=== PATIENT | female | born 1950 | race Caucasian/White ===

== ENCOUNTER 2017-01-17 19:35 | Observation (INO) | payer MEDICARE, OTHER ==
[2017-01-17] MEDS ORDERED: SODIUM CHLORIDE 0.9% 1,000 ML IV STA (20:45)
[2017-01-17] MEDS ORDERED: SODIUM CHLORIDE 0.9% 500 ML IV STA (20:45)
[2017-01-17] MEDS ORDERED: PANTOPRAZOLE 40 MG/10 ML VIAL IVP STA (20:45)
[2017-01-17] MEDS ORDERED: HYDROmorphone 1 MG/ML 1 ML SYRINGE IVP STA (20:45)
--- NOTE | 2017-01-17 20:50 | ED ---
General Adult HPI - General Chief complaint: Abdominal Pain Stated complaint: Abd Pain Time Seen by Provider: 01/17/17 20:34 Source: patient, family, RN notes reviewed Mode of arrival: ambulatory Limitations: no limitations - History of Present Illness Initial comments: Chief complaint history of present illness this is a 66-year-old female with complaint of epigastric pain. Does not radiate. sHe spent a for approximately 2 hours. She's vomited 3 or 4 times. Patient reports she had discomfort to her lower abdomen last week she took an antacid and it went away. She states took an antacid after having the pain in the epigastric region and did not go away. No other radiation. - Related Data Previous Rx's Medication Instructions Recorded Famotidine [Pepcid] 20 mg PO DAILY #30 tablet 01/17/17 Lisinopril [Prinivil] 5 mg PO DAILY #30 tablet 01/17/17 Ondansetron Odt [Zofran Odt] 4 mg PO Q8HR PRN #10 tab 01/17/17 Allergies Allergy/AdvReac Type Severity Reaction Status Date / Time azithromycin [From Zithromax] AdvReac Severe Nausea & Verified 01/17/17 20:35 Vomiting & Diarrhea Review of Systems ROS Statement: Those systems with pertinent positive or pertinent negative responses have been documented in the HPI. Review of systems patient denies any headache or visual acuity changes no chest pain or shortness of breath taking a deep breath causes discomfort to the epigastric region. Patient has discomfort to the epigastric region and somewhat the right upper quadrant. No back pain. Nausea vomiting 4 times. No diarrhea. No balance problems no deficits neurologically. All systems were reviewed. Past medical problems patient states she does not go to doctors very often but she denies any chronic medical problems. Surgeries none. Family history significant for mother had pancreatic cancer. Brother with esophageal cancer. Another brother with prostate cancer. Patient has ALLERGIES to ragweed. She does not smoke or use alcohol socially. ROS Other: All systems not noted in ROS Statement are negative. Past Medical History Past Medical History: No Reported History History of Any Multi-Drug Resistant Organisms: None Reported Past Surgical History: No Surgical Hx Reported Past Psychological History: No Psychological Hx Reported Smoking Status: Never smoker Past Alcohol Use History: None Reported Past Drug Use History: None Reported General Exam - General Exam Comments Initial Comments: General: The patient is awake and alert, moderate distress because of epigastric pain. The patient is hard of hearing. Vital signs temp 98.0 pulse 75 respiratory rate 18 pulse ox 96% room air blood pressure is elevated at 206/88. Patient states does not normally have high blood pressure. Eye: Pupils are equal, round and reactive to light, extra-ocular movements are intact ; there is normal conjunctiva bilaterally. No signs of icterus. Ears, nose, mouth and throat: There are moist mucous membranes and no oral lesions. Neck: The neck is supple, there is no tenderness, no JVD, thyroid not enlarged, no carotid bruit. No anterior cervical lymphadenopathy. Cardiovascular: There is a regular rate and rhythm. No murmur, rub or gallop is appreciated. Respiratory: Lungs are clear to auscultation, respirations are non-labored, breath sounds are equal. No wheezes, stridor, rales, or rhonchi. Gastrointestinal: Patient is tender with deep palpation to the right upper quadrant to the epigastric region. Mild voluntary guarding but no rebound or referred pain. Active bowel sounds. Back: No back pain. Musculoskeletal: Normal ROM, no tenderness, Neurological: No neuro deficits Skin: Patient denies any rashes. Limitations: no limitations Course Vital Signs 01/17/17 01/17/17 01/17/17 20:23 21:42 22:56 Temperature 98.0 F Pulse Rate 75 72 Respiratory 18 20 Rate Blood Pressure 206/88 181/81 209/79 O2 Sat by Pulse 96 98 Oximetry Medical Decision Making - Medical Decision Making medical decision-making the patient's white count 75.1 hemoglobin 14 hematocrit 43. Potassium is 4.7 with a BUN of 16 creatinine 0.9 the GFR greater than 60. Glucose 102. AST ALT elevated. Troponin less than 0.012. Amylase lipase normal. Plasma lactic acid normal. Total bilirubin normal at 0.6. The abdomen were done and reviewed by radiologist his findings are there is no pneumoperitoneum. No pneumatosis. There is no bowel obstruction. Visualized lung bases and pleural spaces are negative. Soft tissues are unremarkable. Impression; no acute process. As read by Dr. Master Valera after hydration and Protonix the patient reports she stomach feeling better. States that she felt this good at home she would not come in. Her blood pressure does remain high area this will be treated and the patient be given prescription for medications to take at home. She admits that she is noncompliant with following up with her doctor. Patient will receive 10 mg of hydralazine for elevated blood pressure 209/79. skin at 175/80. Patient is feeling better. She'll be driven home by a friend. Patient was strongly encouraged to follow-up with her doctor this week get her blood pressure checked daily. Take lisinopril 5 mg daily as well as her other medication. Dr. Villa - Lab Data Result diagrams: 01/17/17 21:05 01/17/17 21:05 Lab Results 01/17/17 01/17/17 01/17/17 Range/Units 21:05 21:05 21:05 WBC 5.1 (3.8-10.6) k/uL RBC 4.94 (3.80-5.40) m/uL Hgb 14.6 (11.4-16.0) gm/dL Hct 43.2 (34.0-46.0) % MCV 87.4 (80.0-100.0) fL MCH 29.6 (25.0-35.0) pg MCHC 33.8 (31.0-37.0) g/dL RDW 13.1 (11.5-15.5) % Plt Count 181 (150-450) k/uL Neutrophils % 71 % Lymphocytes % 17 % Monocytes % 8 % Eosinophils % 2 % Basophils % 1 % Neutrophils # 3.6 (1.3-7.7) k/uL Lymphocytes # 0.9 L (1.0-4.8) k/uL Monocytes # 0.4 (0-1.0) k/uL Eosinophils # 0.1 (0-0.7) k/uL Basophils # 0.0 (0-0.2) k/uL Sodium 141 (137-145) mmol/L Potassium 4.7 (3.5-5.1) mmol/L Chloride 106 (98-107) mmol/L Carbon Dioxide 24 (22-30) mmol/L Anion Gap 11 mmol/L BUN 16 (7-17) mg/dL Creatinine 0.90 (0.52-1.04) mg/dL Est GFR (MDRD) Af Amer >60 (>60 ml/min/1.73 sqM) Est GFR (MDRD) Non-Af >60 (>60 ml/min/1.73 sqM) Glucose 102 H (74-99) mg/dL Plasma Lactic Acid Bobby 1.2 (0.7-2.0) mmol/L Calcium 10.1 (8.4-10.2) mg/dL Total Bilirubin 0.6 (0.2-1.3) mg/dL AST 124 H (14-36) U/L ALT 86 H (9-52) U/L Alkaline Phosphatase 60 (38-126) U/L Troponin I (0.000-0.034) ng/mL Total Protein 7.4 (6.3-8.2) g/dL Albumin 4.4 (3.5-5.0) g/dL Amylase 46 (30-110) U/L Lipase 84 (23-300) U/L 01/17/17 Range/Units 21:05 WBC (3.8-10.6) k/uL RBC (3.80-5.40) m/uL Hgb (11.4-16.0) gm/dL Hct (34.0-46.0) % MCV (80.0-100.0) fL MCH (25.0-35.0) pg MCHC (31.0-37.0) g/dL RDW (11.5-15.5) % Plt Count (150-450) k/uL Neutrophils % % Lymphocytes % % Monocytes % % Eosinophils % % Basophils % % Neutrophils # (1.3-7.7) k/uL Lymphocytes # (1.0-4.8) k/uL Monocytes # (0-1.0) k/uL Eosinophils # (0-0.7) k/uL Basophils # (0-0.2) k/uL Sodium (137-145) mmol/L Potassium (3.5-5.1) mmol/L Chloride (98-107) mmol/L Carbon Dioxide (22-30) mmol/L Anion Gap mmol/L BUN (7-17) mg/dL Creatinine (0.52-1.04) mg/dL Est GFR (MDRD) Af Amer (>60 ml/min/1.73 sqM) Est GFR (MDRD) Non-Af (>60 ml/min/1.73 sqM) Glucose (74-99) mg/dL Plasma Lactic Acid Bobby (0.7-2.0) mmol/L Calcium (8.4-10.2) mg/dL Total Bilirubin (0.2-1.3) mg/dL AST (14-36) U/L ALT (9-52) U/L Alkaline Phosphatase (38-126) U/L Troponin I <0.012 (0.000-0.034) ng/mL Total Protein (6.3-8.2) g/dL Albumin (3.5-5.0) g/dL Amylase (30-110) U/L Lipase (23-300) U/L Disposition Clinical Impression: Acute gastritis, Hypertension Disposition: HOME SELF-CARE Condition: Fair Instructions: Gastritis (ED), Diet for Stomach Ulcers and Gastritis (ED), Duodenitis (ED) Additional Instructions: Try to eat frequent small meals. Use antacids as needed, one hour after meals and at bedtime. Take Pepcid daily. Follow-up family physician. He'll be suggested have endoscopy if no improvements noted in 4-6 weeks. Prescriptions: Famotidine [Pepcid] 20 mg PO DAILY #30 tablet Lisinopril [Prinivil] 5 mg PO DAILY #30 tablet Ondansetron Odt [Zofran Odt] 4 mg PO Q8HR PRN #10 tab PRN Reason: Nausea Referrals: Adama Greene DO [Primary Care Provider] - 1-2 days Time of Disposition: 23:32
[2017-01-17 21:21] LABS: Basophils % (A) 1 %; CH 29.7; CHCM 34.1; Eosinophils # (A) 0.1 k/uL (0-0.7); Eosinophils % (A) 2 %; HCT 43.2 % (34.0-46.0); HDW 2.56; HGB 14.6 gm/dL (11.4-16.0); Luc # (Auto) 0.08; Luc % (Auto) 2; Lymphocytes # (A) 0.9 k/uL (1.0-4.8); Lymphocytes % (A) 17 %; MCH 29.6 pg (25.0-35.0); MCHC 33.8 g/dL (31.0-37.0); MCV 87.4 fL (80.0-100.0); Mean Platelet Volume 7.8; Monocytes # (A) 0.4 k/uL (0-1.0); Monocytes % (A) 8 %; Neutrophils # (A) 3.6 k/uL (1.3-7.7); Neutrophils % (A) 71 %; RBC 4.94 m/uL (3.80-5.40); RDW 13.1 % (11.5-15.5); WBC 5.1 k/uL (3.8-10.6); WBC (Perox) 5.29
[2017-01-17 21:26] LABS: ALT 86 U/L (9-52); AST 124 U/L (14-36); Alkaline Phosphatase 60 U/L (38-126); Amylase 46 U/L (30-110); Anion Gap 11 mmol/L; Blood Urea Nitrogen 16 mg/dL (7-17); Calcium 10.1 mg/dL (8.4-10.2); Carbon Dioxide 24 mmol/L (22-30); Chloride 106 mmol/L (98-107); Glucose 102 mg/dL (74-99); Non-African American GFR(MDRD) >60 (>60 ml/min/1.73 sqM); Potassium 4.7 mmol/L (3.5-5.1); Sodium 141 mmol/L (137-145); Total Bilirubin 0.6 mg/dL (0.2-1.3); Total Protein 7.4 g/dL (6.3-8.2)
--- NOTE | 2017-01-17 22:21 | XR ---
EXAMINATION TYPE: XR abdomen 4V DATE OF EXAM: 01/17/2017 COMPARISON: NONE HISTORY: Pain with nausea and vomiting TECHNIQUE: 2 supine and 2 upright views FINDINGS: There is no pneumoperitoneum. No pneumatosis. There is no bowel obstruction. Visualized lung bases and pleural spaces are negative. Bones and soft tissues are unremarkable IMPRESSION: No acute process.
[2017-01-17] MEDS ORDERED: hydrALAZINE HCL 20 MG/ML 1 ML VIAL IVP STA (22:54)
[2017-01-18] MEDS ORDERED: METOCLOPRAMIDE 5 MG/ML 2 ML VIAL IVP STA (00:16)
[2017-01-18] MEDS ORDERED: HYDROmorphone 1 MG/ML 1 ML SYRINGE IV PRN (01:12)
[2017-01-18] MEDS ORDERED: NALOXONE 0.4 MG/ML 1 ML VIAL IV PRN (01:12)
[2017-01-18] MEDS ORDERED: ONDANSETRON 4 MG/2 ML VIAL IVP PRN (01:12)
[2017-01-18] MEDS ORDERED: SODIUM CHLORIDE 0.9% 1,000 ML IV SCH (01:30)
[2017-01-18 02:32] VITALS: BMI 33.6
[2017-01-18 08:14] VITALS: BP 129/61; PULSE 68; RESP 18; TEMP 99.1
[2017-01-18] MEDS ORDERED: PANTOPRAZOLE 40 MG/10 ML VIAL IV SCH (09:00)
--- NOTE | 2017-01-18 14:58 | P.HPIM ---
History of Present Illness H&P Date: 01/18/17 Chief Complaint: Epigastric pain HISTORY AND PHYSICAL AND DISCHARGE SUMMARY: This is a 66-year-old female patient of Dr. Greene with past medical history of gastroesophageal reflux disease, diverticulosis. She states that yesterday at 5:30 PM after she ate her supper of spaghetti, homemade sauce with hamburger she developed severe epigastric pain. This was nonradiating. She denies any pain in other quadrants, no shoulder pain, no chest pain. She does complain of nausea and vomiting but no diarrhea. She denies any fever but she states she felt warm. She states she took Tums and 7-Up and it didn't go away. She ended up calling her daughter and finally it did go away after she took another 7 up. She has a history of undergoing colonoscopy for which a polyp was removed completely years ago. However the pain came back and patient came into [facility] emergency center for evaluation. She was found to be quite hypertensive with initial blood pressure of 206/88. Patient denies any history of hypertension. She was given 1 dose of hydralazine with improvement of her blood pressure. Patient was placed on the observation unit and placed on IV fluids. In the emergency center, she was given Dilaudid, Reglan and Protonix. She states this resolved her pain and it did not return. Patient is anxious to be discharged home today. Discussed need for ultrasound of the gallbladder for which she will follow up with her primary care physician. Review of Systems All systems: negative Constitutional: Denies chills, Denies fatigue, Denies fever, Denies poor appetite Eyes: denies blurred vision, denies pain Ears, nose, mouth and throat: Denies dental pain, Denies dysphagia, Denies headache, Denies mouth pain, Denies sore throat Cardiovascular: Denies chest pain, Denies dyspnea on exertion, Denies leg edema , Denies lightheadedness, Denies shortness of breath, Denies syncope Respiratory: Denies cough, Denies cough with sputum, Denies dyspnea, Denies excessive sputum, Denies hemoptysis, Denies home oxygen Gastrointestinal: Reports abdominal pain, Reports heartburn, Reports nausea, Reports vomiting, Denies diarrhea Genitourinary: Denies dysuria, Denies hematuria Musculoskeletal: Denies myalgias Integumentary: Denies pruritus, Denies rash Neurological: Denies numbness, Denies weakness Psychiatric: Denies anxiety, Denies depression Endocrine: Denies fatigue, Denies weight change Past Medical History Past Medical History: GERD/Reflux Additional Past Medical History / Comment(s): Diverticulosis History of Any Multi-Drug Resistant Organisms: None Reported Past Surgical History: No Surgical Hx Reported Additional Past Surgical History / Comment(s): Colonoscopy Past Psychological History: No Psychological Hx Reported Smoking Status: Never smoker Past Alcohol Use History: None Reported Additional Past Alcohol Use History / Comment(s): Patient is a lifelong nonsmoker. She denies any medical marijuana, marijuana, street drug use. She drinks alcohol occasionally. She lives alone. Past Drug Use History: None Reported - Past Family History Father Additional Family Medical History / Comment(s): Father at age 59 due to prostate cancer. Mother Additional Family Medical History / Comment(s): Mother at age 77 with some type of cancer and patient does not remember type. Brother(s) Additional Family Medical History / Comment(s): Patient has 2 brothers and one currently is undergoing treatment for some type of cancer and patient does not know what this is. Patient has 1 brother that from esophageal cancer. Daughter(s) Additional Family Medical History / Comment(s): Patient has 2 daughters and one has problems with her thyroid and one with ALLERGIES. Patient has 1 son with no major medical problems. Patient does not have any sisters. Medications and Allergies Home Medications Medication Instructions Recorded Confirmed Type Lisinopril [Zestril] 5 mg PO DAILY #30 tab 01/18/17 Rx Pantoprazole [Protonix] 40 mg PO AC-BRKFST #30 tab 01/18/17 Rx Allergies Allergy/AdvReac Type Severity Reaction Status Date / Time azithromycin [From Zithromax] AdvReac Severe Nausea & Verified 01/17/17 20:35 Vomiting & Diarrhea Physical Exam Vitals: Vital Signs Temp Pulse Pulse Resp BP BP Pulse Ox 01/18/17 08:00 99.1 F 68 18 129/61 95 01/18/17 04:00 82 16 01/18/17 03:39 118/58 01/18/17 02:08 98.2 F 82 16 186/70 95 01/18/17 00:39 87 20 166/70 01/18/17 00:15 71 20 172/72 01/17/17 22:56 209/79 01/17/17 21:42 72 20 181/81 98 01/17/17 20:23 98.0 F 75 18 206/88 96 Intake and Output 01/17/17 01/18/17 01/18/17 22:59 06:59 14:59 Intake Total 240 Balance 240 Intake: Oral 240 Other: Voiding Method Toilet Weight 86.183 kg 86.183 kg Gen: This is a 66-year-old female. She is sitting up in bed and appears to be comfortable. No acute distress noted. HEENT: Head is atraumatic, normocephalic. Pupils equal, round. Sclerae is anicteric. NECK: Supple. No JVD. No lymphadenopathy. No thyromegaly. LUNGS: Clear to auscultation. No wheezes or rhonchi. No intercostal retractions. HEART: Regular rate and rhythm. No murmur. ABDOMEN: Soft. Bowel sounds are present. No masses. No tenderness. EXTREMITIES: No pedal edema. No calf tenderness. NEUROLOGICAL: Patient is awake, alert and oriented x3. Cranial nerves 2 through 12 are grossly intact. Results CBC & Chem 7: 01/17/17 21:05 01/17/17 21:05 Labs: Abnormal Lab Results - Last 24 Hours (Table) 01/17/17 01/17/17 Range/Units 21:05 21:05 Lymphocytes # 0.9 L (1.0-4.8) k/uL Glucose 102 H (74-99) mg/dL AST 124 H (14-36) U/L ALT 86 H (9-52) U/L Thrombosis Risk Factor Assmnt - DVT/VTE Prophylaxis DVT/VTE Prophylaxis: Pharmacologic Prophylaxis ordered - Choose All That Apply Each Risk Factor Represents 2 Points: Age 61-74 years Thrombosis Risk Factor Assessment Total Risk Factor Score: 2 Thrombosis Risk Factor Assessment Level: Low Risk Assessment and Plan Plan: 1. Epigastric pain possibly due to cholecystitis or gastritis. Patient started on Protonix. Recommend patient undergo outpatient ultrasound of the gallbladder. 2. Hypertension, urgent and new diagnosis. Patient started on lisinopril and provided with prescription. Patient placed in the observation unit. Discharge plan: Return home Impression and plan of care have been directed as dictated by the signing physician. Vanessa Lo nurse practitioner acting as scribe for signing physician. Cc: Dr. Adama Greene
[2017-01-19] MEDS ORDERED: PANTOPRAZOLE 40 MG TABLET PO SCH (07:30)
== END 2017-01-18 12:14 | disposition home or self-care (01) ==
LOC: EC 19:35 → 3OBS 01-18 01:12
PROVIDERS: ADMIT Internal Medicine; ATTEND Internal Medicine
DX: R10.13 Epigastric pain (principal); I16.0 Hypertensive urgency; I10 Essential (primary) hypertension; R11.2 Nausea with vomiting, unspecified; R74.0 Nonspecific elevation of levels of transaminase and lactic acid dehydrogenase [LDH]; K21.9 Gastro-esophageal reflux disease without esophagitis; K57.90 Diverticulosis of intestine, part unspecified, without perforation or abscess without bleeding; H91.90 Unspecified hearing loss, unspecified ear; Z88.1 Allergy status to other antibiotic agents; Z86.010 Personal history of colon polyps; Z80.0 Family history of malignant neoplasm of digestive organs
CPT/HCPCS: 36415; 74020; 80053; 82150; 83605; 83690; 84484; 85025; 96361; 96374; 96375; 96376; 99285

== ENCOUNTER → 2017-02-01 | Outpatient (CLI) | payer MEDICARE, OTHER ==
--- NOTE | 2017-02-01 15:06 | NM ---
EXAMINATION TYPE: NM hepatobiliary w EF DATE OF EXAM: 02/01/2017 COMPARISON: NONE HISTORY: Right upper quadrant pain TECHNIQUE: After the intravenous administration of 5.3 mCi Tc 99m Mebrofenin hepatobiliary scintigrap hy is performed. Immediate images post injection. FINDINGS: There is satisfactory initial accumulation of tracer by the liver. The gallbladder is visualized wit hin 18 minutes. The small bowel activity is noted within 10 minutes. At one hour 8 ounces of oral e nsure plus is given to mimic CCK and gallbladder ejection fraction is calculated at 64 %, in the norm al range. Therefore there is no scintigraphic evidence of cystic or common bile duct obstruction to suggest acute cholecystitis or gallbladder dyskinesia. IMPRESSION: Exam is within normal limits.
== END | disposition home or self-care (01) ==
LOC: RADNMMAIN 12:28
PROVIDERS: ATTEND Family Medicine
DX: R10.11 Right upper quadrant pain (principal)
CPT/HCPCS: 78226; A9537

== ENCOUNTER → 2017-06-29 | Outpatient (CLI) | payer MEDICARE, OTHER ==
--- NOTE | 2017-06-29 11:42 | US ---
EXAMINATION TYPE: US carotid duplex BILAT DATE OF EXAM: 06/29/2017 COMPARISON: 03/14/2016 CLINICAL HISTORY: I10 HTN. HTN, left facial numbness, no hx of TIA or stroke EXAM MEASUREMENTS: RIGHT: Peak Systolic Velocity (PSV) cm/sec ----- Right CCA: 54.6 ----- Right ICA: 93.0 ----- Right ECA: 78.2 ICA/CCA ratio: 1.7 RIGHT: End Diastole cm/sec ----- Right CCA: 16.2 ----- Right ICA: 29.2 ----- Right ECA: 11.0 LEFT: Peak Systolic Velocity (PSV) cm/sec ----- Left CCA: 65.9 ----- Left ICA: 72.1 ----- Left ECA: 82.0 ICA/CCA ratio: 1.1 LEFT: End Diastole cm/sec ----- Left CCA: 18.9 ----- Left ICA: 23.7 ----- Left ECA: 11.7 VERTEBRALS (direction of flow): Right Vertebral: Antegrade Left Vertebral: Antegrade Rhythm: Normal No plaque seen. Wall thickening seen bilaterally. No elevated velocities or significant stenosis see n. IMPRESSION: 1. Mild intimal thickening. No significant flow-limiting stenosis is present. Criteria for Assigning % of Stenosis / Diameter reduction (Estimation based on the indirect measurements of the internal carotid artery velocities (ICA PSV). 1. Normal (no stenosis)=ICA PSV < 125 cm/s: ratio < 2.0: ICA EDV<40 cm/s. 2. Less than 50% stenosis=ICA PSV < 125 cm/s: ratio < 2.0: ICA EDV<40 cm/s. 3. 50 to 69% stenosis=ICA PSV of 125 to 230 cm/s: ration 2.0 ? 4.0: ICA EDV 40-100 cm/s. 4. Greater than 70% stenosis to near occlusion= ICA PSV > 230 cm/s: ratio > 4.0: ICA EDV > 100 cm/s. 5. Near occlusion= ICA PSV velocities may be low or undetectable: variable ratio and ICA EDV. 6. Total occlusion=unable to detect flow.
== END | disposition home or self-care (01) ==
LOC: RADUSWWP 10:31
PROVIDERS: ATTEND Family Medicine
DX: I77.89 Other specified disorders of arteries and arterioles (principal); I10 Essential (primary) hypertension
CPT/HCPCS: 93880

== ENCOUNTER → 2017-07-10 | Outpatient (CLI) | payer MEDICARE, OTHER ==
--- NOTE | 2017-07-10 16:19 | CT ---
EXAMINATION TYPE: CT abdomen wo con DATE OF EXAM: 07/10/2017 COMPARISON: 05/14/2013 HISTORY: Left upper quadrant pain x [address] DLP: 598.7 mGycm Automated exposure control for dose reduction was used. TECHNIQUE: Helical acquisition of images was performed from the lung bases through the top of iliac crest to include entire abdomen. CONTRAST: Performed with Oral Contrast and without IV contrast. FINDINGS: LUNG BASES: No significant abnormality is appreciated. LIVER/GB: The gallbladder is contracted and contains high density material which may reflect sludge o r small stones. The liver is grossly unremarkable. PANCREAS: No significant abnormality is seen. SPLEEN: No significant abnormality is seen. The spleen is of normal size. ADRENALS: No significant abnormality is seen. KIDNEYS: No mass or hydronephrosis. No evidence for nephrolithiasis. BOWEL: There is pyloric wall thickening which may reflect spasm versus underlying inflammation. Visu alized small and large bowel are otherwise unremarkable. Appendix partially visualized. LYMPH NODES: No significant abnormality is appreciated. OSSEOUS STRUCTURES: No significant abnormality is seen. FREE AIR: No free air is visualized. OTHER: IMPRESSION: 1.There is pyloric wall thickening which may reflect spasm versus underlying inflammation. 2.The gallbladder is contracted and contains high density material which may reflect sludge or small stones.
== END | disposition home or self-care (01) ==
LOC: RADCTMAIN 14:55
PROVIDERS: ATTEND Family Medicine
DX: K82.0 Obstruction of gallbladder (principal); K31.89 Other diseases of stomach and duodenum
CPT/HCPCS: 74150

== ENCOUNTER 2017-10-26 06:22 | Day surgery (SDC) | payer MEDICARE, OTHER ==
[2017-10-22 15:04] VITALS: BMI 34.3
[~2017-10-26 06:22] MED LIST: DEXAMETHASONE SOD PHOSPHATE 10 MG/ML 1 ML VIAL IV ONE; HEPARIN SODIUM,PORCINE 5,000 UNIT/ML 1 ML VIAL SQ ONE; HYDROmorphone 0.5 MG/0.5 ML SYRINGE IVP PRN; LACTATED RINGERS 1,000 ML IV SCH; ONDANSETRON 4 MG/2 ML VIAL IVP ONE
[2017-10-26] MEDS ORDERED: LIDOCAINE 1% 20 ML VIAL (10MG/ML) FOR IV START INTRADERMA ONE (07:04)
[2017-10-26] MEDS: ceFAZolin IN SWFI 2 GM/20 ML SYRINGE IVP ONE ×2 (07:35→07:52)
[2017-10-26] MEDS ORDERED: BUPIVACAINE (PF) 0.5% 30 ML VIAL SQ ONE ×3 (07:36→08:12)
[2017-10-26] MEDS ORDERED: PROPOFOL 10 MG/ML 20 ML VIAL IV ONE (07:52)
[2017-10-26] MEDS ORDERED: GLYCOPYRROLATE 0.2 MG/ML 2 ML VIAL ONE (07:52)
[2017-10-26] MEDS ORDERED: HYDROmorphone (PF) 1 MG/ML ONE (07:52)
[2017-10-26] MEDS ORDERED: SUCCINYLCHOLINE CHLORIDE 100 MG/5 ML SYR IV ONE (07:52)
[2017-10-26] MEDS ORDERED: VECURONIUM 10 MG VIAL IV ONE (07:52)
[2017-10-26] MEDS ORDERED: NEOSTIGMINE 1 MG/ML 10 ML VIAL ONE (07:52)
[2017-10-26] MEDS ORDERED: fentaNYL (PF) 50 MCG/ML 2 ML AMP ONE (07:52)
[2017-10-26] MEDS ORDERED: MIDAZOLAM 2 MG/2 ML VIAL ONE (07:52)
[2017-10-26] MEDS ORDERED: LIDOCAINE 1% INJ 10MG/ML (20 ML MDV) ONE (07:52)
[2017-10-26] MEDS ORDERED: LACTATED RINGERS 1,000 ML IV ONE (08:47)
[2017-10-26 09:19] VITALS: TEMP 97.1
[2017-10-26] MEDS ORDERED: HYDROcodone/APAP 5-325MG 1 EACH TAB PO PRN (09:26)
[2017-10-26] MEDS ORDERED: NALOXONE 0.4 MG/ML 1 ML VIAL IV PRN (09:26)
--- NOTE | 2017-10-26 09:29 | P.OP ---
Date of Procedure: 10/26/17 Procedure(s) Performed: PREOPERATIVE DIAGNOSIS: Chronic cholecystitis POSTOPERATIVE DIAGNOSIS: Same PROCEDURE: Laparoscopic cholecystectomy SURGEON: John EBL: Minimal see anesthesia record ANESTHESIA: Gen. COMPLICATIONS: None OPERATIVE PROCEDURE: The patient was brought and placed on the operating room table in the supine position. The patient was placed under general anesthesia at that time. The abdomen was prepped and draped in the usual sterile fashion. A small vertical infraumbilical incision was made. The fascia was grasped with the Kris forceps. The fascia was retracted anteriorly. The Veress needle was advanced into the peritoneal cavity. The saline drop test was normal. Insufflation took place up to 15 mmHg. A 5 mm optical trocar was advanced and the peritoneal cavity. 2 additional 5 mm trochars were placed in the right upper quadrant under direct visualization. A 10 mm trocar was advanced into the epigastric incision site. The gallbladder was retracted superiorly and laterally. The peritoneum overlying the infundibulum was bluntly dissected. The patient's cystic duct was visualized. The junction between the cystic duct common and hepatic duct was identified. The cystic duct was then divided after placement of 3 10 mm clips on the patient's side and one on the specimen side. The cystic artery was identified and clipped as well. A small vessel was seen along the gallbladder fossa and clipped as well. The gallbladder was then removed from the liver bed using electrocautery. The gallbladder was then removed from the epigastric trocar site with an Endo Catch bag. The gallbladder fossa was irrigated with saline. There was no evidence of any bleeding or biliary drainage seen. The trochars were then removed. The fascia at the 10 millimeter site was closed using a Pranav- Dustin 0 Vicryl stitch. The skin at all 4 sites was closed using a 4-0 Monocryl stitch. At the end of this procedure the sponge and needle counts were correct. DISPOSITION: Stable to the recovery room
[2017-10-26] MEDS ORDERED: LABETALOL 5 MG/ML VIAL MDV IVP ONE (09:37)
[2017-10-26 11:14] VITALS: RESP 18
[2017-10-26] MEDS ORDERED: ONDANSETRON 4 MG/2 ML VIAL IVP ONE (11:20)
[2017-10-26 11:37] VITALS: BP 144/78; PULSE 70
== END 2017-10-26 12:08 | disposition home or self-care (01) ==
LOC: OR 06:22
PROVIDERS: ATTEND Surgery
DX: K80.10 Calculus of gallbladder with chronic cholecystitis without obstruction (principal); I10 Essential (primary) hypertension; K21.9 Gastro-esophageal reflux disease without esophagitis; H91.91 Unspecified hearing loss, right ear; Z88.1 Allergy status to other antibiotic agents; Z79.899 Other long term (current) drug therapy
CPT/HCPCS: 88304; 47562; J2250; J1644; J1100; J2710; J2405; J2001; J3010; J1170; J0330; J2704; J0690

== ENCOUNTER → 2019-06-27 | Outpatient (CLI) | payer MEDICARE, OTHER ==
--- NOTE | 2019-06-27 14:39 | CT ---
EXAMINATION TYPE: CT abdomen pelvis wo con DATE OF EXAM: 06/27/2019 COMPARISON: 07/10/2017 HISTORY: 68-year-old female Upper abdominal and RLQ pain CT DLP: 1101 mGycm. Automated exposure control for dose reduction was used. TECHNIQUE: Contiguous axial scanning of the abdomen and pelvis without IV contrast. Coronal and sagit caridad reconstructions performed. FINDINGS: LUNG BASES: No significant abnormality is appreciated. Small hiatal hernia. LIVER/GB: Liver enlarged measuring 18.8 cm with low attenuation compatible with fatty infiltration. C holecystectomy clips. PANCREAS: No significant abnormality is seen. SPLEEN: No significant abnormality is seen. ADRENALS: No significant abnormality is seen. KIDNEYS: No significant abnormality is seen. LYMPH NODES: Borderline enlarged left periaortic retroperitoneal lymph node measures 8 mm, axial imag e 69, unchanged from 2018 compatible with a benign etiology. Mild apical scarring calcifications infr arenal abdominal aorta without aneurysm. BOWEL: Normal appendix. No dilated small bowel, free fluid, or free air. There is scattered mild to moderate stool in left-sided colonic diverticulosis, greatest in the sigmoid colon. No pericolonic in flammatory change. PELVIS: Mild circumference of lateral wall thickening. Uterus anteverted. Neither ovary well seen. No abnormal fluid collection in the pelvis or pelvic lymphadenopathy. Tiny pelvic phleboliths on the ri ght. BONES: Facet arthropathy lower lumbar spine. Degenerative disc disease thoracolumbar junction. Grade 1 retrolisthesis L1-L2 and L2-L3. IMPRESSION: 1. Mild hepatomegaly (18.8 cm) with hepatic steatosis. 2. Left-sided colonic diverticulosis without evidence for acute diverticulitis. 3. Mild circumferential bladder wall thickening. Correlate to exclude cystitis. 4. Small hiatal hernia.
== END | disposition home or self-care (01) ==
LOC: RADCTMAIN 12:20
PROVIDERS: ATTEND Family Medicine
DX: K76.0 Fatty (change of) liver, not elsewhere classified (principal); K57.30 Diverticulosis of large intestine without perforation or abscess without bleeding; K44.9 Diaphragmatic hernia without obstruction or gangrene; R16.0 Hepatomegaly, not elsewhere classified; R93.41 Abnormal radiologic findings on diagnostic imaging of renal pelvis, ureter, or bladder
CPT/HCPCS: 74176

== ENCOUNTER → 2021-02-17 | Outpatient (CLI) | payer MEDICARE, OTHER ==
--- NOTE | 2021-02-17 16:38 | CT ---
EXAMINATION TYPE: CT brain wo/w con DATE OF EXAM: 02/17/2021 COMPARISON: 03/14/2016 HISTORY: TIA CT DLP: 2054mGycm CONTRAST: CT scan of the head is performed without and with IV Contrast, patient injected with 100 mL of Isovue 300. Unenhanced followed by contrast enhanced CT of the brain is submitted for evaluation. The ventricles are midline. There is no evidence for intracranial hemorrhage or extra-axial collection. No mass e ffects are identified. Visualized bony calvarium is intact. Contrast is administered and no enhanci ng lesions are detected. No pathologic enhancement is identified. If symptoms persist consider MRI. IMPRESSION: Normal CT brain.
== END | disposition home or self-care (01) ==
LOC: RADCTMAIN 15:09
PROVIDERS: ATTEND Family Medicine
DX: G45.9 Transient cerebral ischemic attack, unspecified (principal)
CPT/HCPCS: 82565; 84520; 70470; 36415; Q9967

== ENCOUNTER → 2022-01-04 | Outpatient (CLI) | payer MEDICARE ==
--- NOTE | 2022-01-04 16:13 | CT ---
EXAM: CT Abdomen and Pelvis With Intravenous Contrast CLINICAL HISTORY: ITS. REASON CT Reason: R10.31 right lower quadrant pain TECHNIQUE: Axial computed tomography images of the abdomen and pelvis with intravenous contrast. CTDI is 20.5 mGy and DLP is 1648.1 mGy-cm. This CT exam was performed using one or more of the following dose reduction techniques: automated exposure control, adjustment of the mA and/or kV according to patient size, and/or use of iterative reconstruction technique. COMPARISON: No relevant prior studies available. FINDINGS: The lung bases demonstrate no acute infiltrate. Marked hepatic steatosis. Hepatomegaly. Status post cholecystectomy. No biliary ductal dilation. The pancreas, spleen, and adrenal glands are within normal limits. Renal cortical atrophy. No hydronephrosis. Diverticulosis coli. Sigmoid colonic diverticulitis. No abscess or free air. No bowel obstruction. Unremarkable appendix. Aortoiliac atherosclerosis. No aneurysm. Lumbar spondylosis. Grade 1 T12, L1, L2, and L3 retrolisthesis. No acute fracture. IMPRESSION: Sigmoid colonic diverticulitis. No abscess or free air. Hepatomegaly with marked parenchymal steatosis. Cholecystectomy.
== END | disposition home or self-care (01) ==
LOC: RADCTMAIN 14:14
PROVIDERS: ATTEND Family Medicine
DX: K57.30 Diverticulosis of large intestine without perforation or abscess without bleeding (principal); K76.0 Fatty (change of) liver, not elsewhere classified; R16.0 Hepatomegaly, not elsewhere classified; R10.31 Right lower quadrant pain; Z90.49 Acquired absence of other specified parts of digestive tract
CPT/HCPCS: 82565; 84520; 74177; 36415; Q9967

== ENCOUNTER 2022-11-13 12:24 | Observation (INO) | payer MEDICARE ==
[2022-11-13] MEDS ORDERED: ASPIRIN 81 MG PO STA (12:56)
[2022-11-13 13:20] LABS: Basophils % (A) 0 %; Eosinophils # (A) 0.4 k/uL (0-0.7); Eosinophils % (A) 7 %; Lymphocytes # (A) 1.6 k/uL (1.0-4.8); Lymphocytes % (A) 29 %; MCH 30.1 pg (25.0-35.0); MCHC 32.6 g/dL (31.0-37.0); MCV 92.3 fL (80.0-100.0); Mean Platelet Volume 7.8; Monocytes # (A) 0.3 k/uL (0-1.0); Monocytes % (A) 6 %; Neutrophils % (A) 55 %; Platelet Count 210 k/uL (150-450); RBC 4.33 m/uL (3.80-5.40); WBC 5.3 k/uL (3.8-10.6)
[2022-11-13 13:29] LABS: Partial Thromboplastin Time 23.9 sec (22.0-30.0); Prothrombin Time 10.3 sec (9.0-12.0)
[2022-11-13 13:36] LABS: AST 29 U/L (14-36); African American GFR (CKD) 52 (>60 ml/min/1.73 sqM); Albumin 4.1 g/dL (3.5-5.0); Alkaline Phosphatase 49 U/L (38-126); Blood Urea Nitrogen 19 mg/dL (7-17); Calcium 9.7 mg/dL (8.4-10.2); Carbon Dioxide 25 mmol/L (22-30); Chloride 102 mmol/L (98-107); Glucose 132 mg/dL (74-99); Non-African American GFR(CKD) 45 (>60 ml/min/1.73 sqM); Total Bilirubin 0.4 mg/dL (0.2-1.3); Total Protein 7.1 g/dL (6.3-8.2)
[2022-11-13 13:37] LABS: ALT 31 U/L (4-34); Anion Gap 11 mmol/L; Sodium 138 mmol/L (137-145)
--- NOTE | 2022-11-13 13:47 | XR ---
EXAMINATION TYPE: XR chest 2V DATE OF EXAM: 11/13/2022 COMPARISON: 04/18/2016 HISTORY: Shortness of breath TECHNIQUE: Frontal and lateral views of the chest are obtained. FINDINGS: Scattered senescent parenchymal changes noted. Hyperinflation compatible with COPD. Interstitial prominence noted as well as increased density right infrahilar region which could reflec t developing pneumonia. Correlate clinically. Heart size is stable. Mediastinal structures are stable and grossly unremarkable. No evidence for hilar prominence. Degenerative changes dorsal spine. IMPRESSION: 1. Interstitial prominence noted as well as increased density right infrahilar region which could ref lect developing pneumonia. Correlate clinically.
[2022-11-13] MEDS ORDERED: ONDANSETRON 4 MG/2 ML VIAL IVP PRN (15:27)
[2022-11-13] MEDS ORDERED: NALOXONE 0.4 MG/ML 1 ML VIAL IV PRN (15:27)
--- NOTE | 2022-11-13 16:32 | ED ---
General Adult HPI - General Chief complaint: Chest Pain Stated complaint: chest pain Time Seen by Provider: 11/13/22 12:34 Source: patient, RN notes reviewed, old records reviewed Mode of arrival: ambulatory Limitations: no limitations - History of Present Illness Initial comments: Patient is a 72-year-old female with past medical history remarkable for hearing impairment, hypertension, asthma, acid reflux who presents emergency Department with atypical chest pain. States is somewhat center and right-sided. Currently does not have a period occurred twice in the last few days. Resolves with rest. Denies shortness of breath. Denies any nausea or vomiting. Denies any diarrhea or abdominal pain. His no other acute complaints at this time. No cardiac history. Presents for further evaluation at this time. - Related Data Home Medications Medication Instructions Recorded Confirmed Bacillus Coagulans [Digestive 1 tab PO DAILY 11/13/22 11/13/22 Advantage Probiotic Chew] Cider Vinegar [Apple Cider Vinegar] 300 mg PO DAILY 11/13/22 11/13/22 Fish Oil(Unknown Dose) 1 cap PO DAILY 11/13/22 11/13/22 Inulin/Chromium Picolinate [Fiber 1 tab PO DAILY 11/13/22 11/13/22 Gummies Chew] Losartan/Hydrochlorothiazide 1 tab PO DAILY 11/13/22 11/13/22 [Hyzaar 100-12.5 Tablet] Lutein 20 mg PO DAILY 11/13/22 11/13/22 Multivitamins, Thera [Multivitamin 1 tab PO DAILY 11/13/22 11/13/22 (formulary)] Omeprazole 20 mg PO DAILY 11/13/22 11/13/22 Vitamin D3(Unknown) 1 tab PO DAILY 11/13/22 11/13/22 Allergies Allergy/AdvReac Type Severity Reaction Status Date / Time mold Allergy Itching Verified 11/13/22 14:16 eyes azithromycin [From Zithromax] AdvReac Severe Nausea & Verified 11/13/22 14:16 Vomiting & Diarrhea DUST AND MOLD Allergy Itching Uncoded 11/13/22 14:16 eyes Review of Systems ROS Statement: Those systems with pertinent positive or pertinent negative responses have been documented in the HPI. Review of Systems: CONST: Denies fever EYES: Denies blurry vision ENT: Denies nasal congestion C/V: Denies Chest pain RESP: Denies shortness of breath GI: Denies abdominal pain : Denies dysuria SKIN: Denies rash. MSK: Denies joint pain. NEURO: Denies headache ROS Other: All systems not noted in ROS Statement are negative. Past Medical History Past Medical History: Asthma, GERD/Reflux, Hypertension Additional Past Medical History / Comment(s): Diverticulosis History of Any Multi-Drug Resistant Organisms: None Reported Past Surgical History: Cholecystectomy Additional Past Surgical History / Comment(s): Colonoscopy, EGD Past Anesthesia/Blood Transfusion Reactions: No Reported Reaction Past Psychological History: No Psychological Hx Reported Smoking Status: Never smoker Past Alcohol Use History: None Reported Past Drug Use History: None Reported - Past Family History Father Family Medical History: Cancer Additional Family Medical History / Comment(s): Father at age 59 due to prostate cancer. Mother Family Medical History: Cancer Additional Family Medical History / Comment(s): Mother at age 77 with some type of cancer and patient does not remember type. Brother(s) Family Medical History: Cancer Additional Family Medical History / Comment(s): Patient has 2 brothers and one currently is undergoing treatment for some type of cancer and patient does not know what this is. Patient has 1 brother that from esophageal cancer. Daughter(s) Family Medical History: Cancer Additional Family Medical History / Comment(s): Patient has 2 daughters and one has problems with her thyroid and one with ALLERGIES. Patient has 1 son with no major medical problems. Patient does not have any sisters. General Exam - General Exam Comments Initial Comments: General: Appears in no acute distress. HEAD: Normal with no signs of head trauma. EYES: PERRLA, EOMI, conjunctiva normal, no discharge. ENT: Hearing grossly intact, normal oropharynx. RESPIRATORY: Clear breath sounds bilaterally. No wheezes, rales, or rhonchi. C/V: Irregular rate and rhythm. S1 and S2 auscultated, no edema, peripheral pulses 2+ and intact throughout ABD: Abd is soft, nontender, nondistended EXT: Normal range of motion, no obvious deformity SKIN: No rashes or lesions observed on exposed skin. NEURO: Alert and oriented 4. Limitations: no limitations Course Vital Signs 11/13/22 11/13/22 12:26 15:21 Temperature 98.3 F Pulse Rate 104 H 73 Respiratory 19 18 Rate Blood Pressure 153/85 127/82 O2 Sat by Pulse 98 97 Oximetry Medical Decision Making - Medical Decision Making Was pt. sent in by a medical professional or institution (, JESSY, MAKEUP EDITOR, urgent care, hospital, or [facility]...) When possible be specific @ -No Did you speak to anyone other than the patient for history (EMS, parent, family, police, friend...)? What history was obtained from this source @ -No Did you review nursing and triage notes (agree or disagree)? Why? @ -I reviewed and agree with nursing and triage notes Were old charts reviewed (outside hosp., previous admission, EMS record, old EKG, old radiological studies, urgent care reports/EKG's, [facility] records)? Report findings @ -No old charts were reviewed Differential Diagnosis (chest pain, altered mental status, abdominal pain women, abdominal pain men, vaginal bleeding, weakness, fever, dyspnea, syncope, headache, dizziness, GI bleed, back pain, seizure, CVA, palpatations, mental health, musculoskeletal)? @ -Differential Chest Pain: Stable Angina, Unstable Angina, STEMI, NSTEMI Aortic Dissection, Pneumothorax, Musculoskeletal, Esophageal Spasm GERD, Cholecystitis, Pancreatitis, Zoster, this is not meant to be an all-inclusive list. EKG interpreted by me (3pts min.). @ -As above X-rays interpreted by me (1pt min.). @ -Chest x-ray reveals no obvious acute cardio pulmonary process. CT interpreted by me (1pt min.). @ -None done U/S interpreted by me (1pt. min.). @ -None done What testing was considered but not performed or refused? (CT, X-rays, U/S, labs)? Why? @ -None What meds were considered but not given or refused? Why? @ -None Did you discuss the management of the patient with other professionals (professionals i.e. , JESSY, MAKEUP EDITOR, lab, RT, psych nurse, social worker health services, [employer] principal, teacher, ground nuclear weapons assembly officer, leather case finisher)? Give summary @ -I discussed with Dr. Nash who accepted the patient under his service. Was smoking cessation discussed for >3mins.? @ -No Was critical care preformed (if so, how long)? @ -No Were there social determinants of health that impacted care today? How? (Homelessness, low income, unemployed, alcoholism, drug addiction, transportation, low edu. Level, literacy, decrease access to med. care, [facility], rehab)? @ -No Was there de-escalation of care discussed even if they declined (Discuss DNR or withdrawal of care, Hospice)? DNR status @ -No What co-morbidities impacted this encounter? (DM, HTN, Smoking, COPD, CAD, Cancer, CVA, ARF, Chemo, Hep., AIDS, mental health diagnosis, sleep apnea, morbid obesity)? @ -None Was patient admitted / discharged? Hospital course, mention meds given and r oute, prescriptions, significant lab abnormalities, going to OR and other pertinent info. @ -Based on patient's presentation and physical exam, I'm concerned for cardiopulmonary etiology for her current symptoms. We will obtain cardiac labs. Vital signs are within acceptable limits. Patient already took 750 mg of aspirin at home and therefore I canceled the 324 mg. She is asymptomatic at this time. EKG showed atrial fibrillation that is rate controlled. Chest x-ray unre markable. Patient's labs are within acceptable limits including an undetectable troponin. At this time I discussed with the patient her workup. I recommended admission to the hospital. She would like to discuss with her daughter. She does not want to be started on blood thinners at this time. I discussed this with the patient and the daughter, and they agreed to admission for evaluation by wilma evangelista. Blood thinners will be held at the patient's request. She is rate controlled. I spoke with the admitting physician, Dr. Nash who accepted the patient. Echo was ordered. Cardiology consulted. Undiagnosed new problem with uncertain prognosis? @ -No Drug Therapy requiring intensive monitoring for toxicity (Heparin, Nitro, Insul in, Cardizem)? @ -No Were any procedures done? @ -No Diagnosis/symptom? @ -Chest pain, new onset A. fib Acute, or Chronic, or Acute on Chronic? @ -Acute Uncomplicated (without systemic symptoms) or Complicated (systemic symptoms)? @ -Uncomplicated Side effects of treatment? @ -No Exacerbation, Progression, or Severe Exacerbation? @ -No Poses a threat to life or bodily function? How? (Chest pain, USA, ID, pneumonia, PE, COPD, DKA, ARF, appy, cholecystitis, CVA, Diverticulitis, Homicidal, Suicidal, threat to staff... and all critical care pts) @ -Possibly, yes - Lab Data Result diagrams: 11/13/22 13:00 11/13/22 13:00 Lab Results 11/13/22 11/13/22 11/13/22 Range/Units 13:00 13:00 13:00 WBC 5.3 (3.8-10.6) k/uL RBC 4.33 (3.80-5.40) m/uL Hgb 13.0 (11.4-16.0) gm/dL Hct 40.0 (34.0-46.0) % MCV 92.3 (80.0-100.0) fL MCH 30.1 (25.0-35.0) pg MCHC 32.6 (31.0-37.0) g/dL RDW 13.0 (11.5-15.5) % Plt Count 210 (150-450) k/uL MPV 7.8 Neutrophils % 55 % Lymphocytes % 29 % Monocytes % 6 % Eosinophils % 7 % Basophils % 0 % Neutrophils # 3.0 (1.3-7.7) k/uL Lymphocytes # 1.6 (1.0-4.8) k/uL Monocytes # 0.3 (0-1.0) k/uL Eosinophils # 0.4 (0-0.7) k/uL Basophils # 0.0 (0-0.2) k/uL PT 10.3 (9.0-12.0) sec INR 1.0 (<1.2) APTT 23.9 (22.0-30.0) sec Sodium 138 (137-145) mmol/L Potassium 4.0 (3.5-5.1) mmol/L Chloride 102 (98-107) mmol/L Carbon Dioxide 25 (22-30) mmol/L Anion Gap 11 mmol/L BUN 19 H (7-17) mg/dL Creatinine 1.21 H (0.52-1.04) mg/dL Est GFR (CKD-EPI)AfAm 52 (>60 ml/min/1.73 sqM) Est GFR (CKD-EPI)NonAf 45 (>60 ml/min/1.73 sqM) Glucose 132 H (74-99) mg/dL Calcium 9.7 (8.4-10.2) mg/dL Magnesium 2.0 (1.6-2.3) mg/dL Total Bilirubin 0.4 (0.2-1.3) mg/dL AST 29 (14-36) U/L ALT 31 (4-34) U/L Alkaline Phosphatase 49 (38-126) U/L Troponin I (0.000-0.034) ng/mL Total Protein 7.1 (6.3-8.2) g/dL Albumin 4.1 (3.5-5.0) g/dL 11/13/22 Range/Units 13:00 WBC (3.8-10.6) k/uL RBC (3.80-5.40) m/uL Hgb (11.4-16.0) gm/dL Hct (34.0-46.0) % MCV (80.0-100.0) fL MCH (25.0-35.0) pg MCHC (31.0-37.0) g/dL RDW (11.5-15.5) % Plt Count (150-450) k/uL MPV Neutrophils % % Lymphocytes % % Monocytes % % Eosinophils % % Basophils % % Neutrophils # (1.3-7.7) k/uL Lymphocytes # (1.0-4.8) k/uL Monocytes # (0-1.0) k/uL Eosinophils # (0-0.7) k/uL Basophils # (0-0.2) k/uL PT (9.0-12.0) sec INR (<1.2) APTT (22.0-30.0) sec Sodium (137-145) mmol/L Potassium (3.5-5.1) mmol/L Chloride (98-107) mmol/L Carbon Dioxide (22-30) mmol/L Anion Gap mmol/L BUN (7-17) mg/dL Creatinine (0.52-1.04) mg/dL Est GFR (CKD-EPI)AfAm (>60 ml/min/1.73 sqM) Est GFR (CKD-EPI)NonAf (>60 ml/min/1.73 sqM) Glucose (74-99) mg/dL Calcium (8.4-10.2) mg/dL Magnesium (1.6-2.3) mg/dL Total Bilirubin (0.2-1.3) mg/dL AST (14-36) U/L ALT (4-34) U/L Alkaline Phosphatase (38-126) U/L Troponin I <0.012 (0.000-0.034) ng/mL Total Protein (6.3-8.2) g/dL Albumin (3.5-5.0) g/dL - EKG Data -: EKG Interpreted by Me EKG Comments: 12-lead Electrocardiogram Interpretation Note EKG was reviewed and interpreted by myself. 12-lead ECG performed at 1239 is interpreted by me as revealing atrial fibrillation at a rate of 82 beats per minute. Right axis deviation. QRS duration is 103 ms. QTC is 410 ms.. There were no ST or T wave abnormalities to suggest myocardial ischemia or injury. R wave progression across the precordium was satisfactory. By my interpretation this EKG is non-diagnostic for acute ischemia. 12-lead Electrocardiogram Interpretation Note EKG was reviewed and interpreted by myself. 12-lead ECG performed at 1315 is interpreted by me as revealing a atrial fibrillation at a rate of 82 beats per minute. Left axis deviation. QRS duration is 121 ms, QTc is 425 ms.. There were no ST or T wave abnormalities to suggest myocardial ischemia or injury. R wave progression across the precordium was satisfactory. By my interpretation this EKG is non-diagnostic for acute ischemia. 12-lead Electrocardiogram Interpretation Note EKG was reviewed and interpreted by myself. 12-lead ECG performed at 1417 is interpreted by me as revealing atrial fibrillation at a rate of 90 beats per minute. Right axis. QRS duration is 117 ms, QTc is 416 ms.. There were no ST or T wave abnormalities to suggest myocardial ischemia or injury. R wave progression across the precordium was satisfactory. By my interpretation this EKG is non-diagnostic for acute ischemia. Disposition Clinical Impression: Chest pain, New onset a-fib Disposition: ADMITTED IP TO THIS HOSP Condition: Stable Time of Disposition: 15:05
--- NOTE | 2022-11-14 01:35 | P.HPIM ---
History of Present Illness H&P Date: 11/13/22 Chief Complaint: Chest pain Patient is a 72-year-old female with known history of hypertension, asthma, GERD presents to ER with complaints of chest pain. Patient states that she started having right upper chest pain when she woke up from the bed this morning. She also stated that she felt quite spasms. Did take aspirin x2 tablets with improvement in symptoms. Denies any complaints of shortness of breath. No associated nausea or vomiting or diaphoresis. Denies any complaints of abdominal pain. Denies any fever or chills. Denies any recent illnesses. EKG on admission with heart rate 82. Chest x-ray showed interstitial prominence noted as well as increased density right infrahilar region which could reflect developing pneumonia. Correlate clinically. Patient does not have any prior history of atrial fibrillation. Laboratory data showed WBC 5.3 hemoglobin 13.7 platelets 210 BUN 19 and creatinine 1.21 and blood sugar 132 liver enzymes are not elevated. Troponin x3 negative. New onset atrial fibrillation with controlled heart rate Atypical chest pain mainly right upper chest. Ruled out ACS. Hypertension GERD History of asthma not in exacerbation DVT prophylaxis with heparin subcu. Plan: Patient will be continued on telemetry monitoring. Was given a dose of aspirin in the ER. Continue with home blood pressure medication including losartan/hydro chlorothiazide and PPI. Follow-up proBNP and procalcitonin levels. Cardiology was consulted for willard luation of new A-fib and further recommendations regarding anticoagulation... 2D echocardiogram was ordered. Continue to follow closely. Past Medical History Past Medical History: Asthma, GERD/Reflux, Hypertension Additional Past Medical History / Comment(s): Diverticulosis History of Any Multi-Drug Resistant Organisms: None Reported Past Surgical History: Cholecystectomy Additional Past Surgical History / Comment(s): Colonoscopy, EGD Past Anesthesia/Blood Transfusion Reactions: No Reported Reaction Past Psychological History: No Psychological Hx Reported Smoking Status: Never smoker Past Alcohol Use History: None Reported Past Drug Use History: None Reported - Past Family History Father Family Medical History: Cancer Additional Family Medical History / Comment(s): Father at age 59 due to prostate cancer. Mother Family Medical History: Cancer Additional Family Medical History / Comment(s): Mother at age 77 with some type of cancer and patient does not remember type. Brother(s) Family Medical History: Cancer Additional Family Medical History / Comment(s): Patient has 2 brothers and one currently is undergoing treatment for some type of cancer and patient does not know what this is. Patient has 1 brother that from esophageal cancer. Daughter(s) Family Medical History: Cancer Additional Family Medical History / Comment(s): Patient has 2 daughters and one has problems with her thyroid and one with ALLERGIES. Patient has 1 son with no major medical problems. Patient does not have any sisters. Medications and Allergies Home Medications Medication Instructions Recorded Confirmed Type Bacillus Coagulans [Digestive 1 tab PO DAILY 11/13/22 11/13/22 History Advantage Probiotic Chew] Cider Vinegar [Apple Cider Vinegar] 300 mg PO DAILY 11/13/22 11/13/22 History Fish Oil(Unknown Dose) 1 cap PO DAILY 11/13/22 11/13/22 History Inulin/Chromium Picolinate [Fiber 1 tab PO DAILY 11/13/22 11/13/22 History Gummies Chew] Losartan/Hydrochlorothiazide 1 tab PO DAILY 11/13/22 11/13/22 History [Hyzaar 100-12.5 Tablet] Lutein 20 mg PO DAILY 11/13/22 11/13/22 History Multivitamins, Thera [Multivitamin 1 tab PO DAILY 11/13/22 11/13/22 History (formulary)] Omeprazole 20 mg PO DAILY 11/13/22 11/13/22 History Vitamin D3(Unknown) 1 tab PO DAILY 11/13/22 11/13/22 History Allergies Allergy/AdvReac Type Severity Reaction Status Date / Time mold Allergy Itching Verified 11/13/22 14:16 eyes azithromycin [From Zithromax] AdvReac Severe Nausea & Verified 11/13/22 14:16 Vomiting & Diarrhea DUST AND MOLD Allergy Itching Uncoded 11/13/22 14:16 eyes Physical Exam Vitals: Vital Signs Temp Pulse Resp BP Pulse Ox 11/13/22 15:21 73 18 127/82 97 11/13/22 12:26 98.3 F 104 H 19 153/85 98 Intake and Output 11/13/22 11/13/22 11/13/22 06:59 14:59 22:59 Other: Weight 88.904 kg Results CBC & Chem 7: 11/13/22 13:00 11/13/22 13:00 Labs: Abnormal Lab Results - Last 24 Hours (Table) 11/13/22 Range/Units 13:00 BUN 19 H (7-17) mg/dL Creatinine 1.21 H (0.52-1.04) mg/dL Glucose 132 H (74-99) mg/dL Thrombosis Risk Factor Assmnt - DVT/VTE Prophylaxis DVT/VTE Prophylaxis: Pharmacologic Prophylaxis ordered Assessment and Plan Time with Patient: Greater than 30
[2022-11-14 04:22] VITALS: RESP 16
[2022-11-14 06:50] LABS: African American GFR (CKD) 65 (>60 ml/min/1.73 sqM); Anion Gap 9 mmol/L; Blood Urea Nitrogen 18 mg/dL (7-17); Calcium 9.5 mg/dL (8.4-10.2); Carbon Dioxide 27 mmol/L (22-30); Chloride 103 mmol/L (98-107); Glucose 103 mg/dL (74-99); Non-African American GFR(CKD) 56 (>60 ml/min/1.73 sqM); Sodium 139 mmol/L (137-145)
[2022-11-14 07:00] LABS: NT-Pro-B-Type Natriuretic Pept 721 pg/mL
[2022-11-14] MEDS ORDERED: PANTOPRAZOLE 40 MG TABLET PO SCH (07:30)
[2022-11-14] MEDS ORDERED: HEPARIN SODIUM,PORCINE/PF 5,000 UNIT/0.5 ML SYRINGE SQ SCH (08:00)
[2022-11-14 08:57] LABS: Basophils # (A) 0.03 X 10*3/uL (0.00-0.10); Basophils % (A) 0.7 %; Eosinophils # (A) 0.37 X 10*3/uL (0.04-0.35); HGB 12.6 d/dL (12.0-15.0); Lymphocytes % (A) 32.5 %; MCH 30.4 pg (27.0-32.0); MCHC 33.2 d/dL (32.0-37.0); MCV 91.8 FL (80.0-97.0); Mean Platelet Volume 10.2 FL (9.5-12.2); Monocytes # (A) 0.41 X 10*3/uL (0.20-1.00); Monocytes % (A) 8.9 %; NRBC Per 100 WBC 0 X 10*3/uL (0.00-0.01); Neutrophils # (A) 2.29 X 10*3/uL (1.80-7.70); Neutrophils % (A) 49.7 %; Platelet Count 200 X 10*3/uL (140-440); RBC 4.14 X 10*6/uL (4.10-5.20); RDW 13.3 % (11.5-14.5); WBC 4.61 X 10*3/uL (4.50-10.00)
[2022-11-14] MEDS ORDERED: hydroCHLOROthiazide 12.5 MG CAP PO SCH (09:00)
[2022-11-14] MEDS ORDERED: METOPROLOL TARTRATE 25 MG TAB PO SCH (09:00)
[2022-11-14] MEDS ORDERED: APIXABAN 5 MG TAB PO SCH (09:00)
[2022-11-14] MEDS ORDERED: LOSARTAN 50 MG TAB PO SCH (09:00)
[2022-11-14] MEDS ORDERED: METOPROLOL SUCCINATE (ER) 25 MG TAB.ER.24H PO SCH (09:00)
--- NOTE | 2022-11-14 10:24 | P.CRDCN ---
History of Present Illness History of present illness: HISTORY OF PRESENT ILLNESS: This is a 72-year-old female with a past medical history significant for hypertension. Patient does not follow with a route sales person. We have been asked to see the patient in consultation for chest pain. Patient examined at the bedside. Patient presented to the hospital with a chief complaint of chest discomfort. Patient states that she woke up yesterday from sleep with pain on the right side of her chest. The patient denied having any palpitations. She does report however if she exerts herself or walks briskly at home she will sometimes feel her heart racing. The patient also reports she has been feeling a little bit more short of breath over the past couple days which she related to the air quality. She does report that she needed to use her inhaler yesterday. She has a nonsmoker. She denies any alcohol use. She denies any previous cardiac history besides hypertension. She believes that she does have a history of s leep apnea although she does not wear CPAP machine. The patient was found to have atrial fibrillation. The patient does not have a history of atrial fibrillation. She has converted to sinus mechanism and is maintaining sinus mechanism this morning. * EKG reveals atrial fibrillation with controlled ventricular rate. No signs of acute ischemia. * Chest xray interstitial prominence noted as well as increased density right infrahilar region which could reflect developing pneumonia. * Laboratory data: WBC 4.61. Hemoglobin 12.6. Platelet count 200. Sodium 139. Potassium 4.0. BUN 18. Creatinine 1.0. Troponin negative 3. ProBNP is 721. TSH 2.030. * Current home cardiac medications include losartan/hydrochlorothiazide 100- 12.5mg daily * Most recent echocardiogram obtained in February 2016 reveals ejection fraction 55-60% REVIEW OF SYSTEMS: At the time of my exam: CONSTITUTIONAL: Denies fever or chills. HEENT: Denies blurred vision, vision changes, or eye pain. Denies hemoptysis CARDIOVASCULAR: Denies chest pain. Denies orthopnea. Denies PND. Denies palpitations RESPIRATORY: Denies shortness of breath. GASTROINTESTINAL: Denies abdominal pain. Denies nausea or vomiting. HEMATOLOGIC: Denies bleeding disorders. GENITOURINARY: Denies any blood in urine. SKIN: Denies pruitis. Denies rash. PHYSICAL EXAM: VITAL SIGNS: Reviewed. GENERAL: Well-developed in no acute distress. HEENT: Head is normocephalic. Pupils are equal, round. Sclerae anicteric. Mucous membranes of the mouth are moist. Neck supple. No JVD or thyromegaly LUNGS: Respirations even and unlabored. Lungs essentially clear to auscultation bilaterally. HEART: Regular rate and rhythm. S1 and S2 heard. ABDOMEN: Soft. Nondistended. Nontender. EXTREMITIES: Normal range of motion. No clubbing or cyanosis. Peripheral pulses intact. No lower extremity edema NEUROLOGIC: Awake and alert. Oriented x 3. ASSESSMENT: Chest pain, troponins negative 3 New-onset atrial fibrillation, currently maintaining sinus mechanism Hypertension History of asthma Former nicotine dependence PLAN: An acute coronary event has been ruled out Obtain 2-D echo to assess cardiac structure and function Begin Eliquis 5mg BID Begin Metoprolol succinate 25mg daily Patient to undergo stress echocardiogram today If stress echocardiogram is negative and patient is maintaining sinus mechanism, she may be discharged home this evening Patient to follow-up post discharge with Dr. Sandhu Nurse practitioner note has been reviewed by physician. Signing provider agrees with the documented findings, assessment, and plan of care. Dr. Sandhu's Addendum Presented with chest pain but ruled out of acute coronary syndrome. We will obtain a treadmill stress echocardiogram. It was noticed that patient had proximal atrial fibrillation. Heart [id number] score is elevated at 3 due to age, gender. She started her on integral with Eliquis 5 mg twice a day. We had a detailed discussion about the risks and benefits of systemic long-term and coagulation. He also discussed the possible alternatives of anticoagulation therapies. Patient understands risks of stroke and would like to start systemic anticoagulation. I have personally seen and examined the patient. I have personally performed all the components of medical care documented above including formulating the asses sment and plan. I have personally reviewed the relevant labs, imaging and other diagnostics. I have discussed this in detail with my VICE PRESIDENT OF CONTRACTS who has helped me with this documentation. I have carefully reviewed this document before finalizing. Total time spent reviewing medical chart, examining patient, counselling patient and documentation 45 mins Thank you for letting cardiology team participating in this patient's care. Dr. Jett Sandhu MD Cardiovascular Disease Past Medical History Past Medical History: Asthma, GERD/Reflux, Hypertension Additional Past Medical History / Comment(s): Diverticulosis History of Any Multi-Drug Resistant Organisms: None Reported Past Surgical History: Cholecystectomy Additional Past Surgical History / Comment(s): Colonoscopy, EGD Past Anesthesia/Blood Transfusion Reactions: No Reported Reaction Past Psychological History: No Psychological Hx Reported Smoking Status: Never smoker Past Alcohol Use History: None Reported Past Drug Use History: None Reported - Past Family History Father Family Medical History: Cancer Additional Family Medical History / Comment(s): Father at age 59 due to prostate cancer. Mother Family Medical History: Cancer Additional Family Medical History / Comment(s): Mother at age 77 with some type of cancer and patient does not remember type. Brother(s) Family Medical History: Cancer Additional Family Medical History / Comment(s): Patient has 2 brothers and one currently is undergoing treatment for some type of cancer and patient does not know what this is. Patient has 1 brother that from esophageal cancer. Daughter(s) Family Medical History: Cancer Additional Family Medical History / Comment(s): Patient has 2 daughters and one has problems with her thyroid and one with ALLERGIES. Patient has 1 son with no major medical problems. Patient does not have any sisters. Medications and Allergies Home Medications Medication Instructions Recorded Confirmed Type Bacillus Coagulans [Digestive 1 tab PO DAILY 11/13/22 11/13/22 History Advantage Probiotic Chew] Cider Vinegar [Apple Cider Vinegar] 300 mg PO DAILY 11/13/22 11/13/22 History Fish Oil(Unknown Dose) 1 cap PO DAILY 11/13/22 11/13/22 History Inulin/Chromium Picolinate [Fiber 1 tab PO DAILY 11/13/22 11/13/22 History Gummies Chew] Losartan/Hydrochlorothiazide 1 tab PO DAILY 11/13/22 11/13/22 History [Hyzaar 100-12.5 Tablet] Lutein 20 mg PO DAILY 11/13/22 11/13/22 History Multivitamins, Thera [Multivitamin 1 tab PO DAILY 11/13/22 11/13/22 History (formulary)] Omeprazole 20 mg PO DAILY 11/13/22 11/13/22 History Vitamin D3(Unknown) 1 tab PO DAILY 11/13/22 11/13/22 History Apixaban [Eliquis] 5 mg PO BID #60 tab 11/14/22 Rx Allergies Allergy/AdvReac Type Severity Reaction Status Date / Time mold Allergy Itching Verified 11/13/22 14:16 eyes azithromycin [From Zithromax] AdvReac Severe Nausea & Verified 11/13/22 14:16 Vomiting & Diarrhea DUST AND MOLD Allergy Itching Uncoded 11/13/22 14:16 eyes Physical Exam Vitals: Vital Signs Temp Pulse Pulse Resp BP BP Pulse Ox 11/14/22 07:00 98.1 F 63 16 121/71 97 11/14/22 03:20 97.8 F 61 16 126/66 96 11/13/22 22:43 65 18 11/13/22 22:08 97.8 F 59 L 18 147/78 98 11/13/22 18:28 74 18 127/71 98 11/13/22 15:21 73 18 127/82 97 11/13/22 12:26 98.3 F 104 H 19 153/85 98 Intake and Output 11/13/22 11/14/22 11/14/22 22:59 06:59 14:59 Other: # Voids 2 3 Weight 88.904 kg Results 11/14/22 06:00 11/14/22 06:00 Cardiac Enzymes 11/13/22 11/13/22 11/13/22 Range/Units 13:00 13:00 16:05 AST 29 (14-36) U/L Troponin I <0.012 <0.012 (0.000-0.034) ng/mL 11/13/22 Range/Units 19:07 AST (14-36) U/L Troponin I <0.012 (0.000-0.034) ng/mL Coagulation 11/13/22 Range/Units 13:00 PT 10.3 (9.0-12.0) sec APTT 23.9 (22.0-30.0) sec CBC 11/13/22 Range/Units 13:00 WBC 5.3 (3.8-10.6) k/uL RBC 4.33 (3.80-5.40) m/uL Hgb 13.0 (11.4-16.0) gm/dL Hct 40.0 (34.0-46.0) % Plt Count 210 (150-450) k/uL Comprehensive Metabolic Panel 11/13/22 11/14/22 Range/Units 13:00 06:00 Sodium 138 139 (137-145) mmol/L Potassium 4.0 4.0 (3.5-5.1) mmol/L Chloride 102 103 (98-107) mmol/L Carbon Dioxide 25 27 (22-30) mmol/L BUN 19 H 18 H (7-17) mg/dL Creatinine 1.21 H 1.00 (0.52-1.04) mg/dL Glucose 132 H 103 H (74-99) mg/dL Calcium 9.7 9.5 (8.4-10.2) mg/dL AST 29 (14-36) U/L ALT 31 (4-34) U/L Alkaline Phosphatase 49 (38-126) U/L Total Protein 7.1 (6.3-8.2) g/dL Albumin 4.1 (3.5-5.0) g/dL Current Medications Generic Name Dose Route Start Last Admin Trade Name Freq PRN Reason Stop Dose Admin Heparin Sodium (Porcine) 5,000 unit 11/14/22 08:00 Heparin Sodium,Porcine/Pf 5,000 Unit/0.5 Ml Syringe SQ Q8HR [facility] Hydrochlorothiazide 12.5 mg 11/14/22 09:00 Hydrochlorothiazide 12.5 Mg Cap PO DAILY [facility] Losartan Potassium 100 mg 11/14/22 09:00 Losartan 50 Mg Tab PO DAILY [facility] Naloxone HCl 0.2 mg 11/13/22 15:27 Naloxone 0.4 Mg/Ml 1 Ml Vial IV Q2M PRN Opioid Reversal Ondansetron HCl 4 mg 11/13/22 15:27 Ondansetron 4 Mg/2 Ml Vial IVP Q8HR PRN Nausea And Vomiting Pantoprazole Sodium 40 mg 11/14/22 07:30 11/14/22 05:47 Pantoprazole 40 Mg Tablet PO 40 mg [id number] [facility] Administration Intake and Output 11/13/22 11/14/22 11/14/22 22:59 06:59 14:59 Other: # Voids 2 3 Weight 88.904 kg 11/13/22 13:00 11/14/22 06:00
[2022-11-14 13:30] VITALS: BP 116/70; PULSE 60; TEMP 98.3
--- NOTE | 2022-11-15 08:26 | CA ---
Transthoracic Echo Report Name: Paola West Age: 72 Gender: F : 1950 Exam Date: 11/14/2022 10:42 Exam Location: [place] [facility] Ht (in): 63 Wt (lb): 196 Ordering Physician: Rashid Angulo MD Attending/Referring Phys: Kev Mike;[id number] Telesales Specialist Meme Seo RDCS Procedure CPT: Indications: Chest Pain Cardiac Hx: Technical Quality: Good Contrast 1: Total Dose (mL): Contrast 2: Total Dose (mL): MEASUREMENTS (Male / Female) Normal Values 2D ECHO LV Diastolic Diameter PLAX 4.1 cm 4.2 - 5.9 / 3.9 - 5.3 cm LV Systolic Diameter PLAX 3.0 cm IVS Diastolic Thickness 1.2 cm 0.6 - 1.0 / 0.6 - 0.9 cm LVPW Diastolic Thickness 1.2 cm 0.6 - 1.0 / 0.6 - 0.9 cm LV Relative Wall Thickness 0.6 RV Internal Dim ED PLAX 3.1 cm LA Systolic Diameter LX 3.3 cm 3.0 - 4.0 / 2.7 - 3.8 cm LV Diastolic Volume MOD 4C 99.9 cm??? LV Systolic Volume MOD 4C 47.8 cm??? LV Ejection Fraction MOD 4C 52.1 % LV Diastolic Length 4C 7.6 cm LV Systolic Length 4C 5.9 cm LV Diastolic Volume MOD 2C 86.2 cm??? LV Systolic Volume MOD 2C 34.9 cm??? LV Ejection Fraction MOD 2C 59.5 % LV Diastolic Length 2C 7.5 cm LV Systolic Length 2C 6.4 cm LA Volume 52.4 cm??? 18 - 58 / 22 - 52 cm??? M-MODE Aortic Root Diameter MM 3.2 cm MV E Point Septal Separation 0.3 cm AV Cusp Separation MM 2.0 cm DOPPLER AV Peak Velocity 151.7 cm/s AV Peak Gradient 9.2 mmHg MV Area PHT 2.9 cm??? Mitral E Point Velocity 95.5 cm/s Mitral A Point Velocity 93.9 cm/s Mitral E to A Ratio 1.0 MV Deceleration Time 263.3 ms MV E' Velocity 8.4 cm/s Mitral E to MV E' Ratio 11.4 TR Peak Velocity 226.9 cm/s TR Peak Gradient 20.6 mmHg Right Ventricular Systolic Press 25.1 mmHg FINDINGS Left Ventricle Normal global LV size and systolic function. Left ventricular ejection fraction is estimated at 55-60 %. Mildly concentric LVH. No obvious regional wall motion abnormality Right Ventricle Normal right ventricular size and function. Right Atrium Normal right atrial size. Left Atrium Normal left atrial size. Mitral Valve Structurally normal mitral valve. Trace mitral regurgitation. Aortic Valve Trileaflet aortic valve. No aortic valve stenosis or regurgitation. Tricuspid Valve Structurally normal tricuspid valve. No tricuspid stenosis, regurgitation or prolapse. Pulmonic Valve Structurally normal pulmonic valve. Trace to mild pulmonic regurgitation. Pericardium Normal pericardium. No pericardial effusion. Aorta Normal size aortic root and proximal ascending aorta. CONCLUSIONS Normal global LV size and systolic function. Left ventricular ejection fraction is estimated at 55-60 %. Mildly concentric LVH. No obvious regional wall motion abnormality. No significant valvular dysfunction and no significant chamber size abnormality appreciated No prior echo to compare with Previewed by: Dr Jett Sandhu (Electronically Signed) Final Date: 14 November 2022 15:13
--- NOTE | 2022-11-15 08:26 | CA ---
Stress Echo Report Paola West Age: 72 Gender: F : 1950 Exam Date: 11/14/2022 10:21 Exam Location: [place] [facility] Ht (in): 63 Wt (lb): 196 Ordering Physician: Janis Rosen Referring Physician: [id number] Safety Consultant: ANGELES, Technologist Procedure CPT: Indication: CP ICD-9 Codes: Rhythm: Patient History: Cardiac Medications: see chart Medications in past 24 hours: Contrast: Stress Results Protocol: Siddharth Total dose(mL): Exercise Duration (min:sec): 4:[address] Depression (mm): Angina Score: Ponce Score: METS: 6.4 Resting HR: 74 Resting BP: 153 / 53 Peak HR: 115 Peak BP: 212 / 83 Max Predicted HR: 147 78 % Max Predicted HR Target HR: 125 Double Product: [id number] Stress Summary: BP Response: Reason for Termination: Reached target heart rate or work-load Cardiac Symptoms: NO SYMPTOMS ECG Analysis Resting ECG: Normal sinus rhythm, normal ECG heart rate 63 beats a minute Stress ECG: No significant ST or T-wave changes diagnostic for ischemia Arrhythmia: Occasional premature ventricular contractions, no sustained arrhythmias Echo Analysis Resting Echo: Normal global and regional wall motion at rest Peak Echo Analysis: Appropriate augmentation of all echocardiographic segments with stress No echocardiographic evidence of myocardial ischemia MEASUREMENTS (Male/Female) Normal Values CONCLUSIONS Poor exercise tolerance, achieving 6.4 METS and 78 % of max predicted heart rate. Patient exercise for 4 minutes 57 seconds Hypertensive response to exercise with peak exercise blood pressure management to 212/83 mmHg Nonischemic ECG response to exercise Normal resting echocardiogram Nonischemic echocardiographic response to exercise No prior stress echo to compare with Dr Jett Sandhu (Electronically Signed) Final Date: 14 November 2022 13:17
--- NOTE | 2022-11-17 11:17 | P.DS ---
Providers Date of admission: 11/13/22 15:28 Expected date of discharge: 11/14/22 Attending physician: Ok Nash Consults: 11/13/22 15:27 Consult Physician Routine Consulting Provider: [facility] Consult Reason/Comments: chest pain, new afib Do you want consulting provider notified?: Yes Primary care physician: Adama Greene [facility] Course: Final diagnosis New onset atrial fibrillation with controlled heart rate Atypical chest pain mainly right upper chest. Ruled out ACS. Negative stress testing Hypertension GERD History of asthma not in exacerbation Obesity with a BMI of 34.7 DVT prophylaxis Discharge disposition Patient is being discharged in a stable condition with guarded prognosis to home. Patient will follow-up with Dr. Greene in the outpatient setting upon discharge. Patient is to continue with metoprolol and oral anticoagulation as scheduled. Total time taken is greater than 35 minutes. Hospital course This is a 72-year-old female who was recently admitted with chest pain with feelings of palpitations and fluttering. Patient being closely monitored with cardiology with new onset atrial fibrillation being started on anticoagulant along with metoprolol. Patient underwent stress testing which was negative and cardiology recommending outpatient follow-up in the next 1-2 weeks. Patient also encouraged to follow-up with primary care provider on discharge. Please refer to cardiology notes for further HPI. Currently no reports of chest pain, shortness of breath, or palpitations. Patient is afebrile. No reports of nausea or vomiting and patient is tolerating diet. Patient will be discharged home today. Physical exam: Gen: This is a 72-year-old female who is awake, alert and oriented 3, well-developed, well-nourished, obese HEENT: Head is atraumatic, normocephalic. Pupils equal, round. Sclerae is anicteric. NECK: Supple. No JVD. No lymphadenopathy. No thyromegaly. LUNGS: Clear to auscultation. No wheezes or rhonchi. No intercostal retractions. HEART: S1, S2 are muffled ABDOMEN: Soft. Bowel sounds are present. No masses. No tenderness. EXTREMITIES: No pedal edema. No calf tenderness. NEUROLOGICAL: Patient is awake, alert and oriented x3. Cranial nerves 2 through 12 are grossly intact. Please refer to medication reconciliation sheet for a list of medications. The impression and plan of care has been dictated by Zulma Porter, Nurse Practitioner as directed. Dr. Charity MD I have performed a history and examination and MDM of this patient, discussed the same with the dictator, and agree with the dictator's assessment and plan as written ,documented as a scribe. Based on total visit time, I have performed more than 50% of the visit. Patient Condition at Discharge: Stable Plan - Discharge Summary New Discharge Prescriptions: New Apixaban [Eliquis] 5 mg PO BID #60 tab Metoprolol Succinate (ER) [Toprol XL] 25 mg PO DAILY #30 tab Continue Vitamin D3(Unknown) 1 tab PO DAILY Multivitamins, Thera [Multivitamin (formulary)] 1 tab PO DAILY Cider Vinegar [Apple Cider Vinegar] 300 mg PO DAILY Inulin/Chromium Picolinate [Fiber Gummies Chew] 1 tab PO DAILY Omeprazole 20 mg PO DAILY Lutein 20 mg PO DAILY Fish Oil(Unknown Dose) 1 cap PO DAILY Bacillus Coagulans [Digestive Advantage Probiotic Chew] 1 tab PO DAILY Losartan/Hydrochlorothiazide [Hyzaar 100-12.5 Tablet] 1 tab PO DAILY Discharge Medication List Bacillus Coagulans [Digestive Advantage Probiotic Chew] 1 tab PO DAILY 11/13/22 [History] Cider Vinegar [Apple Cider Vinegar] 300 mg PO DAILY 11/13/22 [History] Fish Oil(Unknown Dose) 1 cap PO DAILY 11/13/22 [History] Inulin/Chromium Picolinate [Fiber Gummies Chew] 1 tab PO DAILY 11/13/22 [History] Losartan/Hydrochlorothiazide [Hyzaar 100-12.5 Tablet] 1 tab PO DAILY 11/13/22 [History] Lutein 20 mg PO DAILY 11/13/22 [History] Multivitamins, Thera [Multivitamin (formulary)] 1 tab PO DAILY 11/13/22 [History] Omeprazole 20 mg PO DAILY 11/13/22 [History] Vitamin D3(Unknown) 1 tab PO DAILY 11/13/22 [History] Apixaban [Eliquis] 5 mg PO BID #60 tab 11/14/22 [Rx] Metoprolol Succinate (ER) [Toprol XL] 25 mg PO DAILY #30 tab 11/14/22 [Rx] Follow up Appointment(s)/Referral(s): Jett Sandhu MD [Medical Doctor] - 1 Week (office will call to schedule appointment) Adama Greene DO [Primary Care Provider] - 1 Week Patient Instructions/Handouts: Chest Pain (DC) Discharge Disposition: HOME SELF-CARE
== END 2022-11-14 15:58 | disposition home or self-care (01) ==
LOC: EC 12:24 → 6NMEDSUR 15:28
PROVIDERS: ADMIT Internal Medicine; ATTEND Internal Medicine
DX: I48.91 Unspecified atrial fibrillation (principal); R07.89 Other chest pain; I10 Essential (primary) hypertension; J45.909 Unspecified asthma, uncomplicated; Z87.891 Personal history of nicotine dependence; E66.9 Obesity, unspecified; Z68.34 Body mass index [BMI] 34.0-34.9, adult; K21.9 Gastro-esophageal reflux disease without esophagitis; Z87.19 Personal history of other diseases of the digestive system; Z90.49 Acquired absence of other specified parts of digestive tract; Z98.890 Other specified postprocedural states; Z80.42 Family history of malignant neoplasm of prostate; Z80.0 Family history of malignant neoplasm of digestive organs; Z79.899 Other long term (current) drug therapy; Z88.1 Allergy status to other antibiotic agents; Z91.09 Other allergy status, other than to drugs and biological substances
CPT/HCPCS: 99285; 36415; 93005; 93306; 93351; 83880; 80053; 80048; 84443; 83735; 84484; 85025 ×2; 85610; 85730; 84145; 71046; G0378 ×2

== ENCOUNTER → 2023-12-04 | Outpatient (CLI) | payer MEDICARE | END | disposition home or self-care (01) | LOC: LABPRL 09:30 | PROVIDERS: ATTEND Family Medicine | DX: I10 Essential (primary) hypertension (principal); K21.9 Gastro-esophageal reflux disease without esophagitis | CPT/HCPCS: 80053; 80061; 84439; 84443; 85025 ==